=== PATIENT | male | born 1975 | race Caucasian/White ===

== ENCOUNTER 2019-09-17 21:27 | Inpatient (IN) | payer OTHER ==
[~2019-09-17] VITALS: Ht 165.1 cm; Wt 95.7 kg
[2019-09-17] MEDS ORDERED: HTN MED PO (21:58)
[2019-09-17 22:12] LABS: GLUCOSE,POINT OF CARE 155 MG/DL (70-110)
[2019-09-17 22:17] LABS: BASOPHILS % (AUTO) 0.3 % (0.0-2.0); EOSINOPHILS % (AUTO) 0.4 % (1.0-6.0); HEMATOCRIT 44.7 % (41-53); HEMOGLOBIN 15.5 g/dL (13.5-17.5); LYMPHOCYTES # (AUTO) 3.2 K/uL (1.0-4.8); LYMPHOCYTES % (AUTO) 37.9 % (22.0-44.0); MEAN CORPUSCULAR HEMOGLOBIN 34.5 pg (26.0-34.0); MEAN CORPUSCULAR HGB CONC 34.7 G/dL (31.0-37.0); MEAN CORPUSCULAR VOLUME 99 fL (80-100); MONOCYTES # (AUTO) 0.8 K/uL (0.1-1.0); MONOCYTES % (AUTO) 9.3 % (2.0-9.0); NEUTROPHILS # (AUTO) 4.4 K/uL (1.8-7.7); NEUTROPHILS % (AUTO) 52.1 % (40.0-70.0); PLATELET COUNT (AUTO) 199 K/uL (150-450); RED CELL DISTRIBUTION WIDTH 13.3 % (11.5-14.5)
[2019-09-17 22:32] LABS: CREATININE 1.3 mg/dL (0.60-1.30); POTASSIUM 3.4 mmol/L (3.5-5.1)
[2019-09-17 22:37] LABS: ALBUMIN 3.8 g/dL (3.4-5.0); BILIRUBIN,TOTAL 0.3 mg/dL (0.1-1.0); TOTAL PROTEIN, SERUM 8.1 g/dL (6.4-8.2)
[2019-09-17 22:55] LABS: AMPHET/METH SCREEN,URINE POSITIVE (NEGATIVE); BARBITURATE SCREEN, URINE NEGATIVE (NEGATIVE); BENZODIAZEPINES SCREEN,URINE NEGATIVE (NEGATIVE); CANNABINOID SCREEN,URINE NEGATIVE (NEGATIVE); COCAINE SCREEN,URINE NEGATIVE (NEGATIVE); METHADONE SCREEN, URINE NEGATIVE (NEGATIVE); OPIATE SCREEN,URINE NEGATIVE (NEGATIVE)
[2019-09-17 22:56] LABS: PHENCYCLIDINE SCREEN,URINE NEGATIVE (NEGATIVE)
[2019-09-18] VITALS (9 sets, daily range): BP systolic 113–147; BP diastolic 68–102
[2019-09-18] MEDS ORDERED: ZOLPIDEM TARTRATE 10 MG TABLET PO PRN (00:15)
[2019-09-18] MEDS ORDERED: HALOPERIDOL 5 MG TABLET PO PRN (00:15)
[2019-09-18] MEDS ORDERED: LORazepam 2 MG TABLET PO PRN (00:15)
[2019-09-18 02:49] LABS: APPEARANCE,URINE CLEAR (CLEAR); BILIRUBIN,URINE NEGATIVE (NEGATIVE); GLUCOSE, URINE (UA) NEGATIVE (NEGATIVE); KETONES,URINE NEGATIVE (NEGATIVE); LEUKOCYTE ESTERASE ,URINE NEGATIVE (NEGATIVE); NITRATE,URINE NEGATIVE (NEGATIVE); OCCULT BLOOD,URINE TRACE (NEGATIVE); PH,URINE 6.5 (5.0-8.0); PROTEIN,URINE NEGATIVE (NEGATIVE); UROBILINOGEN,URINE 0.2 mg/dL (<=1.0)
[2019-09-18 03:01] LABS: BACTERIA,URINE None Seen /HPF (None Seen); RBC,URINE 0-2 /HPF (0-2); SQUAMOUS EPITHELIAL CELL,UR None Seen /LPF (None Seen); WBC,URINE 0-2 /HPF (0-5)
[2019-09-18] MEDS ORDERED: AmLODIPine BESYLATE 5 MG TABLET PO ONE (09:00)
[2019-09-18] MEDS ORDERED: BENAZEPRIL HCL 10 MG TABLET PO ONE (14:30)
[2019-09-18] MEDS: HYDROCHLOROTHIAZIDE 25 MG TABLET PO SCH (14:55)
[2019-09-18] MEDS ORDERED: IBUPROFEN 400 MG TABLET PO PRN ×2 (16:00→23:45)
[2019-09-18] MEDS ORDERED: ALBUTEROL SULFATE HFA 90 MCG/PUFF 8 GM INHALER IH PRN (23:45)
[2019-09-18] MEDS ORDERED: NICOTINE 14 MG/24 HOUR PATCH TD PRN (23:45)
[2019-09-18] MEDS ORDERED: ACETAMINOPHEN 325 MG TABLET PO PRN (23:45)
[2019-09-18] MEDS ORDERED: CloNIDine HCL 0.1 MG TABLET PO PRN (23:45)
[2019-09-18] MEDS ORDERED: MAG HYDROX/AL HYDROX/SIMETH ES 30 ML SUSPENSION UDCUP PO PRN (23:45)
[2019-09-18] MEDS ORDERED: ONDANSETRON HCL 4 MG TABLET PO PRN (23:45)
[2019-09-18] MEDS ORDERED: PETROLATUM,WHITE 28 GM JELLY TP PRN (23:45)
[2019-09-18] MEDS ORDERED: GuaiFENesin/D-METHORPHAN [SUGAR-FREE] 200-20MG/10 ML SYRUP UDCUP PO PRN (23:45)
[2019-09-18] MEDS ORDERED: DOCUSATE SODIUM 100 MG CAPSULE PO PRN (23:45)
[2019-09-18] MEDS ORDERED: MAGNESIUM HYDROXIDE SUSPENSION 30 ML UDCUP PO PRN (23:45)
[2019-09-18] MEDS ORDERED: LOPERAMIDE HCL 2 MG CAPSULE PO PRN (23:45)
[2019-09-19 03:30] VITALS: BP 114/68
[2019-09-19 06:04] VITALS: BP 129/61
[2019-09-19 07:57] LABS: BASOPHILS % (AUTO) 0.4 % (0.0-2.0); EOSINOPHILS % (AUTO) 0.9 % (1.0-6.0); HEMATOCRIT 48.1 % (41-53); HEMOGLOBIN 16.2 g/dL (13.5-17.5); LYMPHOCYTES # (AUTO) 1.9 K/uL (1.0-4.8); LYMPHOCYTES % (AUTO) 28.7 % (22.0-44.0); MEAN CORPUSCULAR HEMOGLOBIN 33.9 pg (26.0-34.0); MEAN CORPUSCULAR HGB CONC 33.8 G/dL (31.0-37.0); MEAN CORPUSCULAR VOLUME 100 fL (80-100); MONOCYTES # (AUTO) 0.5 K/uL (0.1-1.0); MONOCYTES % (AUTO) 8.3 % (2.0-9.0); NEUTROPHILS # (AUTO) 4.1 K/uL (1.8-7.7); NEUTROPHILS % (AUTO) 61.7 % (40.0-70.0); PLATELET COUNT (AUTO) 190 K/uL (150-450); RED BLOOD CELL COUNT(AUTO) 4.79 MIL/uL (4.50-5.90); RED CELL DISTRIBUTION WIDTH 13.4 % (11.5-14.5)
[2019-09-19 08:15] VITALS: BP 134/76
[2019-09-19 08:25] LABS: HEMOGLOBIN A1C 6.1 % (3.8-5.6)
[2019-09-19 08:30] LABS: ALANINE AMINOTRANSFERASE 70 U/L (12-78); ALBUMIN 3.6 g/dL (3.4-5.0); ALKALINE PHOSPHATASE 93 U/L (46-116); ANION GAP 7 mmol/L (8-16); ASPARTATE AMINOTRANSFERASE 57 U/L (15-37); BILIRUBIN,TOTAL 0.5 mg/dL (0.1-1.0); CALCIUM, TOTAL 9.5 mg/dL (8.8-10.5); CARBON DIOXIDE 30 mmol/L (22-29); CHLORIDE 103 mmol/L (98-107); CHOL/HDL RATIO 4.9 (4.2-7.3); CHOLESTEROL 201 mg/dL (131-200); CREATININE 0.88 mg/dL (0.60-1.30); GLOMERULAR FILTR. RATE CALC > 60 mL/min (>60); GLUCOSE,RANDOM 123 mg/dL (70-110); HDL CHOLESTEROL 41 mg/dL (40-60); LDL CHOL (CALC.) 131 mg/dL (0-130); POTASSIUM 4.5 mmol/L (3.5-5.1); SODIUM SERUM 140 mmol/L (136-145); THYROID STIMULATING HORMONE 2.49 uIU/mL (0.36-3.74); TOTAL PROTEIN, SERUM 7.3 g/dL (6.4-8.2); TRIGLYCERIDES 146 mg/dL (15-150); UREA NITROGEN, BLOOD 12 mg/dL (7-18)
[2019-09-19] MEDS: HYDROCHLOROTHIAZIDE 25 MG TABLET PO SCH (09:45)
[2019-09-19] MEDS: AmLODIPine BESYLATE 5 MG TABLET PO SCH (09:45)
[2019-09-19] MEDS ORDERED: LORazepam 2 MG TABLET PO PRN ×2 (11:45→13:15)
[2019-09-19 12:28] VITALS: BP 132/91
[2019-09-19] MEDS ORDERED: LORazepam 2 MG TABLET PO SCH (13:00)
[2019-09-19 16:39] VITALS: BP 137/77
[2019-09-19 16:41] VITALS: BP 137/77
[2019-09-20 05:40] VITALS: BP 133/76
[2019-09-20 05:41] VITALS: BP 133/76
[2019-09-20] MEDS ORDERED: LORazepam 2 MG TABLET PO PRN ×2 (07:00)
[2019-09-20] MEDS ORDERED: BENZOCAINE/MENTHOL LOZENGE PO PRN (07:45)
[2019-09-20 08:26] VITALS: BP 133/78
[2019-09-20] MEDS: LORazepam 2 MG TABLET PO SCH ×4 (08:47→20:41)
[2019-09-20] MEDS: AmLODIPine BESYLATE 5 MG TABLET PO SCH (08:47)
[2019-09-20] MEDS: HYDROCHLOROTHIAZIDE 25 MG TABLET PO SCH (08:51)
[2019-09-20] MEDS ORDERED: LORazepam 2 MG TABLET PO SCH (09:00)
[2019-09-20 16:24] VITALS: BP 130/89
[2019-09-20 16:40] VITALS: BP 130/89
[2019-09-21] MEDS ORDERED: PNEUMOCOCCAL VACCINE POLYVALENT 0.5 ML VIAL [PPSV23] IM ONE (03:30)
[2019-09-21] MEDS ORDERED: INFLUENZA VIRUS VACCINE QVS 2019-20 (3YR+)/PF 60 MCG/0.5 ML SYRINGE IM ONE (03:30)
[2019-09-21 06:22] VITALS: BP 124/84
[2019-09-21] MEDS: AmLODIPine BESYLATE 5 MG TABLET PO SCH (08:01)
[2019-09-21] MEDS: LORazepam 2 MG TABLET PO SCH ×4 (08:01→20:56)
[2019-09-21] MEDS: HYDROCHLOROTHIAZIDE 25 MG TABLET PO SCH (08:03)
[2019-09-21 08:45] VITALS: BP 135/97
[2019-09-21] MEDS: OLANZapine 5 MG TABLET PO SCH ×2 (12:39→16:52)
[2019-09-21 16:20] VITALS: BP 129/92
[2019-09-22 06:15] VITALS: BP 131/89
[2019-09-22] MEDS ORDERED: LORazepam 1 MG TABLET PO PRN ×2 (07:00)
[2019-09-22 08:36] VITALS: BP_SYST 160; BP_DIAS 94; BP_DIAS 99
[2019-09-22] MEDS ORDERED: LORazepam 1 MG TABLET PO SCH (09:00)
[2019-09-22] MEDS: OLANZapine 5 MG TABLET PO SCH ×2 (09:02→17:00)
[2019-09-22] MEDS: HYDROCHLOROTHIAZIDE 25 MG TABLET PO SCH (09:02)
[2019-09-22] MEDS: AmLODIPine BESYLATE 5 MG TABLET PO SCH (09:02)
[2019-09-22] MEDS: LORazepam 1 MG TABLET PO SCH ×3 (09:02→17:00)
[2019-09-22] MEDS ORDERED: AMLO5TAB9 PO (10:35)
[2019-09-22] MEDS ORDERED: HYDR-1475 PO (10:35)
[2019-09-22] MEDS ORDERED: OLAN5TAB2 PO (10:35)
[2019-09-22 16:12] VITALS: BP 118/72
[2019-09-23] MEDS ORDERED: LORazepam 1 MG TABLET PO PRN ×2 (07:00)
== END 2019-09-22 18:22 | disposition home or self-care (01) | DRG 880 ==
LOC: EMS 21:27 → B3A 09-18 09:35
PROVIDERS: ADMIT Psychiatry & Neurology Child & Adolescent Psychiatry; ATTEND Psychiatry & Neurology Child & Adolescent Psychiatry
DX: R45.851 Suicidal ideations (principal); Y90.7 Blood alcohol level of 200-239 mg/100 ml; E78.5 Hyperlipidemia, unspecified; E87.6 Hypokalemia; F10.20 Alcohol dependence, uncomplicated; I10 Essential (primary) hypertension; Z28.21 Immunization not carried out because of patient refusal
CPT/HCPCS: 83036; 84443; G0480

== ENCOUNTER 2019-10-11 01:01 | Emergency (ER) | payer OTHER ==
[~2019-10-11] VITALS: Ht 157.5 cm; Wt 95.5 kg
[~2019-10-11 01:01] MED LIST: AMLO5TAB9 PO; HYDR-1475 PO; OLAN5TAB2 PO
[2019-10-11 04:00] VITALS: BP 119/74
== END 2019-10-11 06:19 | disposition home or self-care (01) ==
LOC: EMS 01:05
DX: F10.129 Alcohol abuse with intoxication, unspecified (principal); R45.851 Suicidal ideations; I10 Essential (primary) hypertension; F20.9 Schizophrenia, unspecified